=== PATIENT | male | born 1985 | race Caucasian/White ===

== ENCOUNTER 2016-12-26 02:12 | Emergency (ER) | payer OTHER | END 2016-12-26 02:20 | disposition left against medical advice (07) | LOC: CED | DX: Z53.21 Procedure and treatment not carried out due to patient leaving prior to being seen by health care provider (principal) ==

== ENCOUNTER 2017-01-14 13:49 | Emergency (ER) | payer OTHER ==
[~2017-01-14] VITALS: Ht 177.8 cm; Wt 68.0 kg
[2017-01-14] MEDS ORDERED: QUETIAPINE FUMA25 MG (14:25)
[2017-01-14] MEDS ORDERED: METFORMIN (14:25)
[2017-01-14] MEDS ORDERED: ATORVASTATIN CA10 MG (14:26)
[2017-01-14] MEDS ORDERED: ZOLOFT (14:26)
[2017-01-14 16:04] LABS: BASOPHIL% 0.2 % (0-2.5); EOSINOPHIL% 0.2 % (0.0-7.0); HEMATOCRIT 50.6 % (38.0-50.0); HEMOGLOBIN 17.1 gm/dL (13.0-16.0); LYMPHOCYTE# 0.9 X10e3 (1.0-3.5); LYMPHOCYTE% 9.9 % (17.0-45.0); MEAN CELL VOLUME 86.9 FL (83-96); MEAN CORPUSCULAR HEMOGLOBIN 29.3 PG (28-34); MEAN CORPUSCULAR HGB CONC 33.7 g/dL (30-36); MEAN PLATELET VOLUME 10.2 FL (6.5-11.5); MONOCYTE# 0.6 X10e3 (0-1.0); MONOCYTE% 6.4 % (3.0-12.0); NEUTROPHIL# 7.7 X10e3 (1.5-7.1); NEUTROPHIL% 83.3 % (40-75); PLATELET COUNT 246 X10e3 (140-420); RED BLOOD COUNT 5.82 X10e (3.90-5.60); RED CELL DISTRIBUTION WIDTH 13.7 % (11.0-15.5); WHITE BLOOD COUNT 9.3 X10e3 (4.0-10.5)
[2017-01-14 16:06] LABS: DIFF IND NO
[2017-01-14 16:16] LABS: ALBUMIN SERUM 5.1 g/dL (3.5-5.0); BILIRUBIN,TOTAL 2.7 mg/dL (0.2-2.0); BUN/CREATININE RATIO 13.75; CALCIUM SERUM 9.4 mg/dL (8.4-10.2); CREATININE SERUM 0.8 mg/dL (0.6-1.4); GLOM FILT RATE Estimated 119.1 mL/min (>60); POTASSIUM 3.5 mmol/L (3.5-5.1); PROTEIN TOTAL SERUM 8.7 g/dL (6.0-8.3)
== END 2017-01-14 17:01 | disposition home or self-care (01) ==
LOC: SED 13:49
PROVIDERS: Emergency Medicine
DX: E11.9 Type 2 diabetes mellitus without complications (principal); F20.89 Other schizophrenia; I10 Essential (primary) hypertension; E78.5 Hyperlipidemia, unspecified; F17.200 Nicotine dependence, unspecified, uncomplicated
CPT/HCPCS: 80053; 82010; 83690; 85025; 96374; 99284; J2060; J2405; J2765

== ENCOUNTER 2017-01-16 10:33 | Inpatient (IN) | payer OTHER ==
[~2017-01-16] VITALS: Ht 152.4 cm; Wt 61.2 kg
--- NOTE | ~2017-01-16 | PN ---
Unit #: [id number] #: [id number] Patient: GRISEL GRAJEDA [id number] [facility] [address] [place] [address] [id number] MR#: [id number] NAME: GRISEL GRAJEDA ROOM: 64 Age: 31 Sex: M Admission Date: 01/16/2017 : 1985 Attending Physician: Jorge Mcmahon M.D. Admitting Physician: Jorge Mcmahon M.D. Primary Care Physician: Anne Primary Care Physician YURY PROGRESS NOTES DATE OF SERVICE 01/22/2017. DISCUSSION Grisel continues to be quiet and cooperative. He is compliant with his medications and has no adverse side effects today. He appears be sleeping well, but denies feeling excessively sedated. ASSESSMENT Schizophrenia, paranoid type. PLAN We will continue his current medications, hoping for discharge in the near future given his recent improvement. Dictated by... Jorge Mcmahon M.D. MRH/gz TD: 01/23/2017 14:30 JOB #: [id number] [facility] PROGRESS NOTES Page 1 of 1 X Jorge Mcmahon MD X PROGRESS NOTE
--- NOTE | ~2017-01-16 | PA ---
Unit #: [id number] #: [id number] Patient: GRISEL GRAJEDA [id number] [place] [address] [id number] MR#: [id number] NAME: GRISEL GRAJEDA ROOM: P264 Age: 31 Sex: M Admission Date: 01/16/2017 : 1985 Date of Assessment: Attending Physician: Jorge Mcmahon M.D. Admitting Physician: Jorge Mcmahon M.D. Primary Care Physician: Primary Care Physician No PSYCHIATRIC ASSESSMENT DATE OF ASSESSMENT 01/17/2017 INFORMANTS Patient reliable; OLOP, reliable; the patient's family, reliable. CHIEF COMPLAINT Psychosis. HISTORY OF PRESENT ILLNESS Grisel is a 31-year-old man with a history of bipolar disorder versus schizophrenia, he is a ione of [place] and speaks Setswana only. Translation services were provided by his family. The patient was paranoid and guarded and believed that he was having "NMS reaction to Abilify." Father reported he had been paranoid for years and has been threatening and violent at home. He was unable to contract for safety and was admitted for stabilization. PAST PSYCHIATRIC HISTORY One previous admission to this facility with a diagnosis of bipolar disorder. He has been on Abilify Maintena in the past, but has not been compliant with his medication for about a month. FAMILY PSYCHIATRIC HISTORY None reported. SOCIAL HISTORY The patient is a single, ione of [place] and currently lives with his family. He is unmarried with no children. PAST MEDICAL HISTORY Type 2 diabetes. MEDICATIONS Please see MAR. ALLERGIES Haldol. SUBSTANCE USE HISTORY No known history of chemical dependence. MENTAL STATUS EXAMINATION Unit #: [id number] #: [id number] Patient: GRISEL GRAJEDA presented as a mildly disheveled man, who appeared his stated age. He was irritable, but cooperative with the examination. His speech was sparse and heavily accented, and he required the services of a Setswana foreign language teacher for full participation. He appeared to be concerned about neuroleptic malignant syndrome. His speech was otherwise sparse. Mood was irritable with a flat affect. He was alert and oriented to person and location, partially to situation, partially to time. Memory and concentration were poor. Thought processes were paranoid and psychotic. ASSETS AND LIABILITIES The patient has supportive family and presents voluntarily for treatment. Liabilities include noncompliance with medication, possible negative response to medication. ADMITTING DIAGNOSES AXIS I: Bipolar disorder mixed F31.6. AXIS II: No diagnosis. AXIS III: Type 2 diabetes. AXIS IV: AXIS V: PSYCHIATRIC PLAN The patient was admitted and placed on psychosis precautions. Zoloft and clonazepam will be continued and we will change him to Seroquel 100 mg t.i.d. We will obtain urine creatinine another test appropriate for NMS, although this does not appear to be an issue at this time. He is afebrile with no other symptoms. He will enroll in reality based psychotherapy groups and activities. TREATMENT GOALS Resolution of psychosis, improvement in insight, and improvement in coping skills. DISCHARGE PLANNING Follow up with [facility]. ESTIMATED LENGTH OF STAY 5 days. Dictated by... Jorge Mcmahon M.D. GERARDO/bryant TD: 01/23/2017 20:22 JOB #: [id number] Unit #: [id number] #: [id number] Patient: GRISEL GRAJEDA PSYCHIATRIC ASSESSMENT Page 1 of 1 X Jorge Mcmahon MD X PSYCHIATRIC ASSESSMENT
--- NOTE | ~2017-01-16 | HP ---
Unit #: [id number] #: [id number] Patient: GRISEL GRAJEDA [id number] [place] [address] [id number] I MR#: [id number] NAME: GRISEL GRAJEDA ROOM: P264 Age: 31 Sex: M Admission Date: 01/16/2017 : 1985 Attending Physician: Jorge Mcmahon M.D. Admitting Physician: Jorge Mcmahon M.D. Primary Care Physician: Primary Care Physician No HISTORY AND PHYSICAL HISTORY OF PRESENT ILLNESS Grisel is a 31-year-old male admitted on 01/16/[address] [place] [address] for psychosis. 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 PAST MEDICAL HISTORY Type II diabetes. PAST SURGICAL HISTORY None. SOCIAL HISTORY He denies, tobacco, alcohol or illegal drug use. He is currently single and living with his father. FAMILY HISTORY Noncontributory. REVIEW OF SYSTEMS CONSTITUTIONAL: No fever or chills. HEENT: Denies any sore throat, ear pain or runny nose. CARDIOVASCULAR: Denies chest pain, irregular heart rhythm or palpitations. CHEST: Denies shortness of breath or cough. No hemoptysis. GASTROINTESTINAL: Denies nausea, vomiting, diarrhea or chronic constipation. ENDOCRINE: Denies history of increased thirst or urination. No recent significant weight loss or gain. GENITOURINARY: Denies dysuria, frequency, or hematuria. SKIN: Denies any rashes. HEMATOLOGIC: Denies history of increased bleeding or bruising. MUSCULOSKELETAL: Denies any hot, swollen joints. No generalized muscle pain. NEUROLOGIC: Denies problems with vision or speech. No frequent, severe headaches. No numbness, tingling or weakness in any extremities. Denies loss of bladder or bowel control. CURRENT MEDICATIONS 1. Atorvastatin 2. Zoloft 3. Metformin ER Unit #: [id number] #: [id number] Patient: GRISEL GRAEJDA ALLERGIES Haldol PHYSICAL EXAMINATION GENERAL: Alert, oriented, in no acute distress. VITAL SIGNS: Blood pressure 141/87, heart rate 111, respirations 20, temperature 98.6. HEIGHT: 5 foot 0 inches. WEIGHT: 135 pounds. SKIN: Warm and dry without rash or lesion. HEENT: Normocephalic. TMs not viewed. Oral and nasal passages clear. Conjunctivae clear. PERRLA. EOMs intact. NECK: Supple without lymphadenopathy or thyromegaly. HEART: Regular rate and rhythm without murmur. LUNGS: Clear. ABDOMEN: Soft, nontender, without masses or hepatosplenomegaly. : Not done. EXTREMITIES: No evidence of cyanosis, clubbing or edema. Moves all without focal deficit. NEUROLOGICAL: Grossly within normal limits. Cranial Nerves: II: Visual carlos are intact. III, IV AND : Extraocular movements are intact. Pupils are equal, round and reactive to light. V: Facial sensation is grossly normal. VII: Facial movements and expression are normal. VIII: Auditory acuity grossly intact. IX, X: Uvula is midline. Phonation is normal. XI: Patient shrugs shoulders and turns head normally. XII: Tongue protrudes in the midline. Sensory and Motor Function: Sensory and motor sensation is grossly normal. Motor: moves all extremities well. Coordination: Gait is normal. Deep Tendon Reflexes: Intact. IMPRESSION Psychiatric admission. RECOMMENDATIONS Psychiatric, per psychiatrist. MEDICAL: I see no contraindications to participating in facility's activities. MEDICAL PROGNOSIS Good. MEDICAL CONDITION Stable. Dictated by... Jus Matthew TD: 01/16/2017 23:48 JOB #: [id number] Unit #: [id number] #: [id number] Patient: TARASSHIRAGRISEL HISTORY AND PHYSICAL Page 1 of 1 X LAZARA AGGARWAL APRN X HISTORY AND PHYSICAL
--- NOTE | ~2017-01-16 | DS ---
Unit #: [id number] #: [id number] Patient: GRISEL GRAJEDA [id number] [place] [address] [id number] MR#: [id number] NAME: GRISEL GRAJEDA ROOM: P264 Age: 31 Sex: M Admission Date: 01/16/2017 : 1985 Discharge Date: 01/23/2017 Attending Physician: Jorge Mcmahon M.D. Primary Care Physician: Primary Care Physician No DISCHARGE SUMMARY REASON FOR ADMISSION Karlee is a 31-year-old man with a history of bipolar disorder, who had become increasingly paranoid and aggressive in the home. He fears that he was having a negative reaction to his Abilify injection although this injection was given more than a month ago. He was unable to contract for safety and was admitted for stabilization. DIAGNOSTIC STUDIES LABORATORY RESULTS: Urine creatinine random was 246. CMP demonstrated mildly high glucose of 138 and normal creatinine 0.9, high bilirubin total of 2.3. CBC demonstrated high RBCs and hemoglobin but was otherwise unremarkable. Urine drug screen was negative for all drugs of abuse. HOSPITAL COURSE The patient was admitted and placed on psychosis precautions. Seroquel 100 mg t.i.d. was added due to his negative response to Abilify and clonazepam 0.5 mg b.i.d. for anxiety with Zoloft 100 mg daily for depression were continued. Glucophage XR was also continued due to his diabetes. The patient had an episode of severe psychotic aggression which required seclusion and restraint with intramuscular medications on one occasion. He became compliant with oral medications and was calm after this, noting to be isolated in his room. Icelandic language translation services were provided throughout the hospitalization, but the patient declined to attend any groups and activities. However on the date of discharge, his speech was more spontaneous. His affect was brighter. He had less psychotic preoccupation and he was able to contract for safety in the outpatient setting. DISCHARGE DIAGNOSES AXIS I: Bipolar disorder, mixed, rule out schizophrenia. AXIS II: No diagnosis. AXIS III: Diabetes, hypercholesterolemia. AXIS IV: AXIS V: DISCHARGE INSTRUCTIONS Follow up with [facility] and primary care physician. DISCHARGE MEDICATIONS Zoloft 100 mg daily for depression, clonazepam 0.5 mg b.i.d. for agitation, Seroquel 100 mg t.i.d. for psychosis. Unit #: [id number] #: [id number] Patient: GRISEL GRAJEDA CONDITION AT DISCHARGE Improved. PROGNOSIS Fair to good. DIET AND ACTIVITY Ad camron. Dictated by... Girish Thomas/bryant TD: 01/23/2017 18:03 JOB #: [id number] DISCHARGE SUMMARY Page 1 of 1 X Jorge Mcmahon MD X DISCHARGE SUMMARY
[~2017-01-16 10:33] MED LIST: ATORVASTATIN CA10 MG; METFORMIN; QUETIAPINE FUMA25 MG; ZOLOFT
[2017-01-17 09:51] LABS: BASOPHIL% 0.3 % (0-2.5); EOSINOPHIL% 0.4 % (0.0-7.0); HEMATOCRIT 48.9 % (38.0-50.0); HEMOGLOBIN 16.5 gm/dL (13.0-16.0); LYMPHOCYTE# 1.2 X10e3 (1.0-3.5); LYMPHOCYTE% 13.2 % (17.0-45.0); MEAN CELL VOLUME 86.2 FL (83-96); MEAN CORPUSCULAR HGB CONC 33.6 g/dL (30-36); MEAN PLATELET VOLUME 10.5 FL (6.5-11.5); MONOCYTE# 0.5 X10e3 (0-1.0); MONOCYTE% 5.5 % (3.0-12.0); NEUTROPHIL# 7.1 X10e3 (1.5-7.1); NEUTROPHIL% 80.6 % (40-75); PLATELET COUNT 237 X10e3 (140-420); RED BLOOD COUNT 5.68 X10e (3.90-5.60); RED CELL DISTRIBUTION WIDTH 13.8 % (11.0-15.5); WHITE BLOOD COUNT 8.8 X10e3 (4.0-10.5)
[2017-01-17 09:56] LABS: DIFF IND NO
[2017-01-17 10:38] LABS: ALBUMIN SERUM 4.6 g/dL (3.5-5.0); BILIRUBIN,TOTAL 2.3 mg/dL (0.2-2.0); CALCIUM SERUM 9.6 mg/dL (8.4-10.2); CREATININE SERUM 0.9 mg/dL (0.6-1.4); GLOM FILT RATE Estimated 113.4 mL/min (>60); POTASSIUM 3.9 mmol/L (3.5-5.1); PROTEIN TOTAL SERUM 7.5 g/dL (6.0-8.3)
[2017-01-17 11:05] LABS: AMPHETAMINE NEG (NEG); BARBITURATES NEG (NEG); BENZODIAZEPINES NEG (NEG); COCAINE NEG (NEG); MARIJUANA NEG (NEG); OPIATES NEG (NEG); TRICYCLIC ANTIDEPRESSANTS NEG (NEG); U METHADONE NEG (NEG)
== END 2017-01-23 13:00 | disposition home or self-care (01) | DRG 885 ==
LOC: P2L 12:00
PROVIDERS: Psychiatry & Neurology Psychiatry
DX: F31.60 Bipolar disorder, current episode mixed, unspecified (principal); E11.9 Type 2 diabetes mellitus without complications; F20.0 Paranoid schizophrenia; E78.00 Pure hypercholesterolemia, unspecified
CPT/HCPCS: 80053; 80307; 82570; 85025; J2060; J3230